=== PATIENT | female | born 1995 | race Caucasian/White ===

== ENCOUNTER 2017-08-30 20:45 | Emergency (ER) | payer SELFPAY ==
[~2017-08-30] VITALS: Ht 165.1 cm; Wt 58.2 kg
[2017-08-30 20:46] VITALS: BP 111/77
[2017-08-30] MEDS ORDERED: DEXAMETHASONE 4 MG TABLET PO ONE (21:30)
[2017-08-30] MEDS ORDERED: ACETAMINOPHEN 500 MG TABLET PO ONE (21:30)
== END 2017-08-30 22:42 | disposition home or self-care (01) ==
LOC: ED 22:15
DX: S29.011A Strain of muscle and tendon of front wall of thorax, initial encounter (principal); R05 Cough; X58.XXXA Exposure to other specified factors, initial encounter; Y93.89 Activity, other specified; Y92.89 Other specified places as the place of occurrence of the external cause; Y99.8 Other external cause status
CPT/HCPCS: 71046; 99285